=== PATIENT | male | born 1975 | race African-American/Black ===

== ENCOUNTER 2017-04-02 22:08 | Emergency (ER) | payer MEDICAID ==
[~2017-04-02] VITALS: Ht 182.9 cm; Wt 112.7 kg
[~2017-04-02 22:08] MED LIST: ACET-66 PO; MO6B PO
[2017-04-02] MEDS ORDERED: DiphenhydrAMINE HCL 25 MG CAPSULE PO ONE (23:00)
[2017-04-02] MEDS ORDERED: ACETAMINOPHEN 500 MG TABLET PO ONE (23:00)
[2017-04-02 23:55] VITALS: BP 127/88
== END 2017-04-02 23:59 | disposition home or self-care (01) ==
LOC: EMS 22:10
DX: H10.33 Unspecified acute conjunctivitis, bilateral (principal); J06.9 Acute upper respiratory infection, unspecified
CPT/HCPCS: 99283

== ENCOUNTER 2019-07-30 11:59 | Emergency (ER) | payer MEDICAID ==
[~2019-07-30] VITALS: Ht 180.3 cm; Wt 113.6 kg
[2019-07-30] MEDS ORDERED: KETOROLAC TROMETHAMINE 30 MG/ML VIAL IM ONE (12:30)
[2019-07-30 14:08] VITALS: BP 142/92
== END 2019-07-30 14:19 | disposition home or self-care (01) ==
LOC: EMS 12:02
DX: S83.92XA Sprain of unspecified site of left knee, initial encounter (principal); M71.22 Synovial cyst of popliteal space [Baker], left knee; F12.90 Cannabis use, unspecified, uncomplicated; X58.XXXA Exposure to other specified factors, initial encounter; Y93.89 Activity, other specified; Y92.89 Other specified places as the place of occurrence of the external cause; Y99.8 Other external cause status
CPT/HCPCS: 29505; 73562; 93971; 96372; 99284; J1885